=== PATIENT | male | born 1965 | race Caucasian/White ===

== ENCOUNTER 2018-06-23 07:28 | Day surgery (SDC) | payer OTHER, SELFPAY ==
--- NOTE | 2018-06-23 | PATH_ITS ---
[facility] Accession Number: [id number] . 01 Material submitted: . COLON POLYP BIOPSY AT ANUS . 02 Diagnosis: Colon, Anal Polyp, Biopsy: Tubular adenoma. MRV/06/24/2018 . 02 Electronically signed: . Shilpi Butts MD, Pathologist NPI- [id number] . 01 Gross description: . Received one formalin-filled container labeled with the patient's name and labeled polyp at anus are three 0.1 to 0.4 cm portions of tissue. Entirely submitted in one cassette. ([facility] [place]:[id number]) /[facility] . 02 Pathologist provided ICD-10: D12.8 . 02 CPT . 528045 Performed at: [address] [facility] [address] [id number] MD Cooper Mills MD Phone: [phone] Performed at: 02 [facility] [address] [place], [place] [id number] MD Shilpi Butts MD Phone: [phone]
[2018-06-23 08:28] VITALS: BP 125/80; PULSE 92; RESP 15; TEMP 36.5; O2SAT 95; BMI 27.4
[2018-06-23] MEDS: SODIUM CHLORIDE 0.9% 1,000 ML 200 ML IV (08:34)
--- NOTE | 2018-06-23 09:14 | PM.HP.1 ---
History of Present Illness Date Patient Seen: 06/23/18 Time Patient Seen: 09:15 Chief complaint: [id number] Narrative: Patient is a gentleman who has never had a colonoscopy. He is 52 here for screening exam. Sees a little blood and tissue at times. He has scribe cyst hemorrhoids. No family history colon cancer. Patient History Surgical History History of vasectomy (Acute) Social History household members: spouse and children Family & Social History Social History: household members spouse,children Meds Home Medications Medication Instructions Recorded Confirmed Type No Known Home Medications 06/23/18 06/23/18 History Allergies Allergy/AdvReac Type Severity Reaction Status Date / Time bee venom protein (honey bee) Allergy Intermediate Swelling, Verified 06/23/18 08:28 congestion Review of Systems Review of Systems All systems reviewed & are unremarkable except as noted in HPI and below Exam Vital Signs (past 8 hours): - 06/23/18 08:28 Temperature 97.7 F Pulse Rate 92 H Respiratory Rate 15 Blood Pressure 125/80 Pulse Oximetry 95 Oxygen Delivery Method Room Air Narrative Exam Narrative: Operative no apparent distress. Lungs are clear to auscultation increased expiratory phase. Heart regular rate and rhythm without murmur gallop. Abdomen is scaphoid soft nontender without mass. Assessment & Plan Assessment & Plan narrative: Patient for screening colonoscopy. I have discussed the procedure and the rationale with the patient including risks of bleeding, perforation which would necessitate a major operation, failure to find remove all lesions and the potential to tattoo. They appeared to understand and wished to proceed. Patient encouraged to see smoking.
--- NOTE | 2018-06-23 09:17 | PM.PREOP ---
Pre-operative Note Interval Note History & Physical reviewed/Exam performed by Physician: Yes Changes to H&P: No ASA Class (for procedural sedation): II
[2018-06-23] MEDS: fentaNYL 250 MCG/5 ML INJ IV (09:33)
[2018-06-23] MEDS: MIDAZOLAM 5 MG/5 ML VIAL IV (09:33)
--- NOTE | 2018-06-23 09:45 | PM.OP.ENDO ---
Operative Date/Time/Diagnoses Date of procedure: 06/23/18 Time of procedure: 09:45 Pre-op diagnosis: Screening examination due to age. This is his 1st colonoscopy. Post-op diagnosis: same (Polyp near anal verge. Internal hemorrhoids.) Procedure & Clinicians Study performed: Colonoscopy with cold biopsy Same procedure as scheduled: Yes Indications: Screening Surgeon: Thanh Bull Procedure Notes SCOAP/Timeout: Performed Procedure in detail: The patient was placed in the left lateral decubitus position and underwent IV sedation directed by the surgeon consisting of fentanyl and Versed. Digital exam was remarkable for mildly enlarged prostate. The scope was inserted and advanced through the rectum into the sigmoid, descending, transverse, and ascending colon. No lesions were seen. The cecum was reached identified by the ileocecal valve and the appendiceal opening. The ileocecal valve was successfully cannulated. The terminal ileum was normal in appearance. The scope was gradually brought out. A single Polyps was found just inside the anal verge. This was not seen on retroflexed view. Only by bringing the scope slowly through the anus. It was biopsied to complete removal.. The scope ultimately was retroflexed in the rectum. The appearance was remarkable for internal hemorrhoids without ulceration. The scope was removed and the patient tolerated the procedure well Scope withdrawal time: 10 min Sedation minutes: 27 Recommendations: Colonscopy in 5 years Follow up: as needed Disposition: PACU
--- NOTE | 2018-06-23 09:49 | SUR.PHASEII ---
Pt bypassed, PACU as he is awake and conversing on admit to Phase 2
[2018-06-23 09:51] VITALS: BP 106/79; PULSE 80; RESP 16; TEMP 36.4; O2SAT 96
[2018-06-23 09:55] VITALS: BP 106/79; PULSE 81; RESP 16; O2SAT 96
[2018-06-23 10:00] VITALS: BP 112/76; PULSE 74; RESP 16; TEMP 36.6; O2SAT 96
[2018-06-23 10:08] VITALS: BP 107/80; PULSE 77; RESP 16; TEMP 36.7; O2SAT 97
== END 2018-06-23 10:20 | disposition home or self-care (01) ==
PROVIDERS: PCP Physician Assistant Medical; Visit Provider Specialist
PROC: 0DJD8ZZ Inspection of Lower Intestinal Tract, Via Natural or Artificial Opening Endoscopic (ICD-10-PCS; CPT 45378; principal; 2018-06-23 08:45)
DX: Z12.11 Encounter for screening for malignant neoplasm of colon (principal); K64.8 Other hemorrhoids; D12.8 Benign neoplasm of rectum
CPT/HCPCS: 45380; 88305; 99152; 99153; J2250; J3010

== ENCOUNTER 2024-04-22 11:42 | Day surgery (SDC) | payer OTHER, SELFPAY ==
[2024-04-22 12:18] VITALS: BP 134/89; PULSE 81; RESP 16; TEMP 36.4; O2SAT 97
[2024-04-22] MEDS: SODIUM CHLORIDE 0.9% 1,000 ML 150 ML IV (12:29)
--- NOTE | 2024-04-22 13:06 | P.HP_ITS ---
History of Present Illness History of Present Illness Date Patient Seen: 04/22/24 Time Patient Seen: 13:06 Chief complaint: SDC Narrative: Dev is a 58-year-old man here for colonoscopy. He has had one before in 2019 with polyps removed. No family history of colon cancer. COUNTS INCLUDE 234 BEDS AT THE [facility] Surgical History History of vasectomy Social History household members: spouse and children Smoking Status: Current every day smoker Meds Home Medications and Allergies Home Medications Medication Instructions Recorded Confirmed Type sodium,potassium,mag sulfates 17.5 See Rx Instructions PO .COMPLEX 03/10/24 Rx gram-3.13 gram-1.6 gram oral soln #354 mL (Suprep Bowel Prep Kit) Allergies Allergy/AdvReac Type Severity Reaction Status Date / Time bee venom protein (honey bee) Allergy Intermediate Swelling, Verified 04/22/24 12:17 congestion Exam Vital Signs (past 8 hours): - 04/22/24 12:18 Temperature 97.6 F Pulse Rate 81 Respiratory Rate 16 Blood Pressure 134/89 Pulse Oximetry 97 Oxygen Delivery Method Room Air Oxygen Delivery Method Room Air Const General: healthy appearing Resp Effort & Inspection: normal respiratory effort Assessment & Plan Assessment and plan (1) History of colon polyps: Status: Acute Plan Colonoscopy Time-Based Coding :: [TOTAL MINUTES] spent with patient and on the chart (including review of chart, obtaining history, exam, reviewing outside data, placing orders, documenting exam and treatment plan, and counseling patient) on [DATE]. [employer] Super[employer] Document charge(s): No
[2024-04-22 13:36] VITALS: BP 129/80; PULSE 84; RESP 22; TEMP 36.5; O2SAT 96
--- NOTE | 2024-04-22 13:39 | PM.OP.COLON ---
Operative Date/Time/Diagnoses Date of procedure: 04/22/24 Time of procedure: 13:39 Pre-op diagnosis: History of polyps Post-op diagnosis: same Procedure & Clinicians Study performed: Colonoscopy Same procedure as scheduled: Yes Surgeon: Darrel Matute Procedure Notes Procedure in detail: Surgeon: Darrel Matute MD Anesthesia: Nicole Hart DO Procedure: The patient was brought to the endoscopy suite, placed in left lateral decubitus position. The patient was connected to monitoring devices. A time-out was performed. Sedation was administered. Once the patient was adequately sedated, a digital rectal exam was performed and was normal. The scope was then inserted and advanced to the cecum where the appendiceal orifice was identified and photographed. The scope was then slowly withdrawn over greater than 6 minutes. The mucosa was thoroughly inspected. No abnormalities were found. The scope was retroflexed in the rectum. The scope was straightened and removed. The patient was awakened and brought to recovery. Scope withdrawal time: 6 minute Sedation time: 12 minutes EBL: 0 Findings: Normal colon Post-procedure Recommendations: Colonoscopy in 10 years Disposition: PACU
[2024-04-22 13:41] VITALS: BP 112/68; PULSE 83; RESP 18; O2SAT 96
[2024-04-22 13:46] VITALS: PULSE 77; RESP 18; TEMP 36.7; O2SAT 97
[2024-04-22 13:51] VITALS: BP 127/91; PULSE 71; RESP 18; TEMP 36.2; O2SAT 97
== END 2024-04-22 14:00 | disposition home or self-care (01) ==
PROVIDERS: PCP Registered Nurse; Referring Provider Surgery; Visit Provider Surgery
PROC: 0DJD8ZZ Inspection of Lower Intestinal Tract, Via Natural or Artificial Opening Endoscopic (ICD-10-PCS; CPT 45378; principal; 2024-04-22 13:15)
DX: Z12.11 Encounter for screening for malignant neoplasm of colon (principal); Z86.0100 Personal history of colon polyps, unspecified; J44.9 Chronic obstructive pulmonary disease, unspecified; F17.200 Nicotine dependence, unspecified, uncomplicated
CPT/HCPCS: G0105; J2704